=== PATIENT | female | born 1990 | race Caucasian/White ===

== ENCOUNTER 2020-05-17 00:27 | Emergency (ER) | payer OTHER ==
[~2020-05-17] VITALS: Ht 165.1 cm; Wt 59.0 kg
[2020-05-17 00:35] VITALS: Ht 165.1 cm; Wt 59.0 kg
[2020-05-17] MEDS ORDERED: [UNRECOGNIZED DRUG - SUPPLY] (03:55)
[2020-05-17 04:41] VITALS: BP 128/89
== END 2020-05-17 04:40 | disposition short-term general hospital (02) ==
LOC: ED 00:27
DX: S12.300A Unspecified displaced fracture of fourth cervical vertebra, initial encounter for closed fracture (principal); S40.012A Contusion of left shoulder, initial encounter; S20.212A Contusion of left front wall of thorax, initial encounter; V49.9XXA Car occupant (driver) (passenger) injured in unspecified traffic accident, initial encounter; Y93.I9 Activity, other involving external motion; Y92.413 State road as the place of occurrence of the external cause; Y99.8 Other external cause status
CPT/HCPCS: J2270; J2405; J3010; J7030; Q0092